=== PATIENT | female | born 1940 | race Caucasian/White ===

== ENCOUNTER 2018-02-08 06:11 | Day surgery (SDC) | payer MEDICARE, OTHER ==
[2018-02-08] MEDS ORDERED: KETOROLAC 0.45% OPHTH DROPS ONE (06:40)
[2018-02-08] MEDS ORDERED: CYCLOPENTOLATE 1% OPHTH DROPS 2 ML ONE (06:41)
[2018-02-08] MEDS ORDERED: PHENYLEPHRINE 2.5% OPHTH 2 ML DROPS ONE (06:41)
[2018-02-08] MEDS ORDERED: LACTATED RINGERS 500 ML IV ONE (06:46)
[2018-02-08] MEDS ORDERED: PROPARACAINE 0.5% OPHTH DROPS 15 ML RIGHTEYE ONE ×2 (06:50→07:48)
[2018-02-08] MEDS ORDERED: PHENYLEPHRINE 2.5% OPHTH 2 ML DROPS RIGHTEYE ONE (06:50)
[2018-02-08] MEDS ORDERED: CYCLOPENTOLATE 1% OPHTH DROPS 2 ML RIGHTEYE ONE (06:50)
[2018-02-08] MEDS ORDERED: KETOROLAC 0.45% OPHTH DROPS RIGHTEYE ONE (06:50)
[2018-02-08] MEDS ORDERED: BRIMONIDINE 0.2% OPHTH DROPS 5 ML ONE (07:16)
[2018-02-08] MEDS ORDERED: TIMOLOL 0.5% OPHTH DROPS ONE (07:16)
[2018-02-08] MEDS ORDERED: TRIAMCIN/MOXIFLOX OPHTHALMIC 0.6 ML VIAL IO ONE (07:16)
[2018-02-08] MEDS ORDERED: BSS/LIDOCAINE/EPINEPHRINE 1 ML SYRINGE ONE (07:17)
[2018-02-08] MEDS ORDERED: VANCOMYCIN OPHTHALMI 8MG/0.8ML 8 MG/0.8 ML SYRINGE IO ONE (07:18)
[2018-02-08] MEDS ORDERED: MIDAZOLAM 2 MG/2 ML VIAL IVP ONE (07:30)
[2018-02-08] MEDS ORDERED: BRIMONIDINE 0.2% OPHTH DROPS 5 ML OPTH ONE (07:44)
[2018-02-08] MEDS ORDERED: EPINEPHrine 1 MG/ML AMP IR ONE (07:45)
[2018-02-08] MEDS ORDERED: TIMOLOL 0.5% OPHTH DROPS OPTH ONE (07:47)
[2018-02-08] MEDS ORDERED: CHONDR SULF/HYALURONATE SYRINGE IO ONE (07:47)
[2018-02-08] MEDS ORDERED: BSS/LIDOCAINE/EPINEPHRINE 1 ML SYRINGE IO ONE (07:47)
[2018-02-08 08:14] VITALS: BP 144/85
--- NOTE | 2018-02-08 15:06 | OPERATIVE REPORT ---
DATE OF SERVICE: 02/08/2018 Physician: Julien Castillo MD PREOPERATIVE DIAGNOSIS: Visually significant cataract, right eye. This was her first cataract surgery and this was a laser assisted cataract surgery. POSTOPERATIVE DIAGNOSIS: Visually significant cataract, right eye. This was her first cataract surgery and this was a laser assisted cataract surgery. NAME OF PROCEDURE: Phacoemulsification posterior chamber intraocular lens implant right eye with laser assist. SURGEON: Julien Castillo MD ANESTHESIA: Monitored anesthesia care. COMPLICATIONS: None. OPERATIVE INDICATIONS: This is a 77-year-old woman with progressive vision loss in the right eye due to 2-3+ nuclear sclerotic cataract. Best corrected visual acuity was 20 /25 with glare to 20/100 in the right eye. INDICATIONS FOR SURGERY: Overall decrease in vision, difficulty seeing words, closed captions or game scores on TV; difficulty driving in low light or at night, difficulty driving at night because of headlights from other vehicles, difficulty with glare or bright lights in any situation, difficulty tracking a golf ball and decreased acuity with firearms. She was consented at length concerning risks and benefits of cataract surgery after which she expressed a desire to proceed with surgery. OPERATIVE PROCEDURE: The patient was taken to the OR 3 and placed under monitored anesthesia care. A surgical timeout was conducted confirming correct patient, correct procedure, and correct surgical site. She was placed on the LenSx laser and her eye docked to the laser interface. The laser performed a capsulotomy, lens softening, phaco wounds and arcuate keratotomy incisions. She was then moved to the operating microscope, given topical anesthesia and then prepped and draped in the usual sterile fashion. The eye was entered at the 12 and 9 o'clock positions. Intracameral Shugarcaine was injected into the anterior chamber, followed by Viscoat. The capsulorrhexis flap created by the LenSx laser was removed from the anterior chamber. The nucleus was hydrodissected and phacoemulsified. The cortex was evacuated using automated infusion and aspiration (I&A). Provisc was injected in the capsular bag, and a 21.0 diopter intraocular lens was inserted in the bag. Approximately 1.0 mL with a mixture of triamcinolonea, moxifloxacin, and vancomycin was injected subconjunctivally in the superior quadrant for infection and inflammation prophylaxis. I&A was used to evacuate the viscoelastic material. The eye was inflated to physiologic pressure using balanced salt solution and found to be watertight. The patient was taken from the operating room in good condition and given postop instructions. TD: 02/08/2018 08:15 EILEEN
== END 2018-02-08 06:12 | disposition home or self-care (01) ==
LOC: SDS 06:11
PROVIDERS: ATTEND Ophthalmology
PROC: 08RJ3JZ Replacement of Right Lens with Synthetic Substitute, Percutaneous Approach (ICD-10-PCS; principal; 2018-02-08 07:30)
DX: H25.11 Age-related nuclear cataract, right eye (principal); I48.91 Unspecified atrial fibrillation; E03.9 Hypothyroidism, unspecified; Z95.0 Presence of cardiac pacemaker; H40.9 Unspecified glaucoma; Z79.82 Long term (current) use of aspirin; Z86.73 Personal history of transient ischemic attack (TIA), and cerebral infarction without residual deficits
CPT/HCPCS: 66984; A9270; V2632

== ENCOUNTER 2018-03-12 18:54 | Emergency (ER) | payer MEDICARE, OTHER ==
--- NOTE | 2018-03-12 19:53 | ED Physician Documentation ---
PD HPI CHEST PAIN - Stated complaint Stated Complaint: CHEST PX - Chief complaint Chief Complaint: Cardiac - History obtained from History obtained from: Patient - History of Present Illness Timing - onset: Today Timing - onset during: Rest Timing - duration: Minutes Timing - details: Abrupt onset, Now resolved (at home she had feeling of heart irregular and seemed fast. She felt anxious with it. Has had atrial fib in the past. She is few months after pacer placement. rhythm review by cardiology noted some episodes of atrial fib so she was started on Eliquis about 2 weeks ago.) Quality: Tightness. No: Pressure Location: Substernal, Left chest Radiation: No: Jaw, Neck Worsened by: No: Inspiration, Movement, Palpation Associated symptoms: Shortness of air, Palpitations. No: Diaphoresis, Nausea, Feeling faint / dizzy, General Weakness Similar symptoms before: Diagnosis (atrial fib in the past) Review of Systems Constitutional: reports: Fatigue. denies: Fever, Myalgias Nose: denies: Rhinorrhea / runny nose, Congestion Throat: denies: Sore throat Respiratory: denies: Dyspnea, Cough, Wheezing GI: denies: Nausea, Vomiting, Diarrhea : denies: Dysuria Musculoskeletal: denies: Extremity swelling Neurologic: reports: Generalized weakness. denies: Focal weakness, Numbness PD PAST MEDICAL HISTORY - Past Medical History Cardiovascular: Atrial fibrillation Respiratory: None Neuro: None Endocrine/Autoimmune: HyPOthyroidism GI: None : Nocturia, Other HEENT: Chronic vision loss, Glaucoma, Other Psych: Claustrophobia Musculoskeletal: Scoliosis, Chronic back pain Derm: None - Past Surgical History Past Surgical History: Yes General: Cholecystectomy, Appendectomy /DIRECTOR OF REAL ESTATE: Hysterectomy Cardiovascular: Pacemaker HEENT: Tonsil/Adenoidectomy - Present Medications Home Medications: Ambulatory Orders Medication Instructions Recorded Confirmed Apixaban [Eliquis] 03/12/18 Latanoprost [Latanoprost] 1 drops EACHEYE QPM 03/12/18 03/12/18 Levothyroxine [Synthroid] 112 mcg PO QDAC 03/12/18 03/12/18 - Allergies Allergies/Adverse Reactions: Allergies Allergy/AdvReac Type Severity Reaction Status Date / Time codeine Allergy Mild Emesis Verified 03/12/18 19:17 ciprofloxacin [From Cipro] Allergy Itching Verified 03/12/18 19:17 - Social History Does the pt smoke?: No Smoking Status: Never smoker Does the pt drink ETOH?: No Does the pt have substance abuse?: No - Immunizations Immunizations are current?: Yes - POLST Patient has POLST: No PD ED PE NORMAL - Vitals Vital signs reviewed: Yes - General General: Alert and oriented X 3, Well developed/nourished, Other (no pain but seems a bit anxious. ) - HEENT HEENT: Pharynx benign - Neck Neck: Supple, no meningeal sign, No adenopathy - Cardiac Cardiac: RRR, No murmur - Respiratory Respiratory: Clear bilaterally - Abdomen Abdomen: Soft, Non tender - Derm Derm: Normal color, Warm and dry - Extremities Extremities: No tenderness to palpate, Normal ROM s pain, No edema, No calf tenderness / cord - Neuro Neuro: Alert and oriented X 3, No motor deficit, Normal speech - Psych Psych: Normal affect (somewhat anxious and scared about having heart problem still. She had hoped the pacer would be resolution of problems. ) Results - Vitals Vitals: Vital Signs - 24 hr 03/12/18 03/12/18 19:04 21:07 Temperature 36.1 C L Heart Rate 60 60 Respiratory 16 19 Rate Blood Pressure 142/75 H 135/73 H O2 Saturation 98 98 Oxygen O2 Source Room air - EKG (time done) 19:03 Rate: Rate (enter#) (62) Rhythm: Paced Melvin: Normal Intervals: Normal VA QRS: Normal Ischemia: Normal ST segments. No: ST elevation c/w ischemia, ST depression - Labs Labs: Laboratory Tests 03/12/18 03/12/18 03/12/18 19:45 19:45 19:45 WBC 6.5 RBC 5.28 Hgb 15.7 Hct 47.3 H MCV 89.5 MCH 29.6 MCHC 33.1 RDW 14.4 Plt Count 224 MPV 7.3 L Neut # (Auto) 4.0 Lymph # (Auto) 1.5 Tama # (Auto) 0.6 Eos # (Auto) 0.2 Baso # (Auto) 0.1 Absolute Nucleated RBC 0.00 Nucleated RBC % 0.1 Sodium 137 Potassium 3.5 Chloride 105 Carbon Dioxide 28 Anion Gap 4.0 L BUN 13 Creatinine 0.6 Estimated GFR (MDRD) 97 Glucose 101 H Calcium 9.0 Magnesium 2.0 Total Bilirubin 0.8 AST 17 ALT 15 Alkaline Phosphatase 66 B-Natriuretic Peptide 78 Total Protein 6.8 Albumin 3.6 Globulin 3.2 Albumin/Globulin Ratio 1.1 Lipase 26 PD MEDICAL DECISION MAKING - ED course Complexity details: considered differential (she had feeling of heart going fast at home. It is okay here. She has recording pacer, so it can be interogated by Cardiology. If having runs of fib, could be Rx meds for rate/ rhythm control. Defer to Cardiology. Labs are okay here with low normal K. ), d/ w patient - Sepsis Event Vital Signs: Vital Signs - 24 hr 03/12/18 03/12/18 19:04 21:07 Temperature 36.1 C L Heart Rate 60 60 Respiratory 16 19 Rate Blood Pressure 142/75 H 135/73 H O2 Saturation 98 98 Oxygen O2 Source Room air Departure - Departure Disposition: 01 Home, Self Care Clinical Impression: Irregular heart rate Fatigue Qualifiers: Fatigue type: unspecified Qualified Code(s): R53.83 - Other fatigue Condition: Stable Record reviewed to determine appropriate education?: Yes Follow-Up: MARIO GRAHAM MD [Primary Care Provider] - Comments: Your heart rhythm was normal with the pacemaker here. You did not have any atrial fibrillation at this time. It might have been going fast earlier when you felt it that way. Call your cardiology office in the next couple of days. They can interrogate your pacemaker and see if you did have a fast episode. Otherwise continue the current medications. Add some potassium dietarily. Drink lots of fluids. Discharge Date/Time: 03/12/18 21:27
[2018-03-12 20:19] LABS: BASOPHILS # (AUTO) 0.1 10^3/uL (0.0-0.1); EOSINOPHILS # (AUTO) 0.2 10^3/uL (0.0-0.7); EOSINOPHILS % (AUTO) 3.6 %; HGB - HEMOGLOBIN 15.7 g/dL (12.0-16.0); LYMPHOCYTES # (AUTO) 1.5 10^3/uL (1.5-3.5); LYMPHOCYTES % (AUTO) 23.5 %; MEAN CORPUSCULAR HEMOGLOBIN 29.6 pg (27.0-31.0); MEAN CORPUSCULAR HGB CONC 33.1 g/dL (32.0-36.0); MEAN CORPUSCULAR VOLUME 89.5 fL (81.0-99.0); MEAN PLATELET VOLUME 7.3 fL (7.9-10.8); MONOCYTES # (AUTO) 0.6 10^3/uL (0.0-1.0); MONOCYTES % (AUTO) 9.7 %; NEUTROPHILS % (AUTO) 62.2 %; PLT - PLATELET COUNT 224 10^3/uL (130-450); RED BLOOD COUNT 5.28 10^6/uL (4.20-5.40); RED CELL DISTRIBUTION WIDTH 14.4 % (12.0-15.0); WHITE BLOOD COUNT 6.5 x10^3/uL (4.8-10.8)
[2018-03-12 20:29] LABS: ALBUMIN 3.6 g/dL (3.2-5.5); ALBUMIN/GLOBULIN RATIO 1.1 (1.0-2.2); BILIRUBIN,TOTAL 0.8 mg/dL (0.2-1.0); CREATININE 0.6 mg/dL (0.4-1.0); TOTAL PROTEIN 6.8 g/dL (6.7-8.2)
[2018-03-12 21:08] VITALS: BP 135/73
== END 2018-03-12 21:27 | disposition home or self-care (01) ==
LOC: ED 18:54
DX: I49.9 Cardiac arrhythmia, unspecified (principal); R53.83 Other fatigue; I48.91 Unspecified atrial fibrillation; Z95.0 Presence of cardiac pacemaker; Z79.01 Long term (current) use of anticoagulants
CPT/HCPCS: 36415; 80053; 83690; 83735; 83880; 85025; 93005; 99283

== ENCOUNTER 2018-03-26 09:30 | Outpatient (CLI) | payer MEDICARE, OTHER ==
--- NOTE | 2018-03-26 11:04 | XRAY Report ---
Procedure Date: 03/26/2018 Accession Number: [id number] / [id number] Procedure: XRS - Hand 3 View LT CPT Code: FULL RESULT: EXAM: Hand 3 View LT DATE: 03/26/2018 9:41 AM CLINICAL HISTORY: INITIAL CALL TO PATIENT [facility] [id number] BNU COMPARISON: None. TECHNIQUE: 3 views. FINDINGS: Bones: Normal. No fractures or bone lesions. Joints: There are mild degenerative changes most pronounced at the third distal interphalangeal joint. Soft Tissues: Normal. No soft tissue swelling. IMPRESSION: Mild degenerative changes as described. RADIA
== END 2018-03-26 09:31 | disposition home or self-care (01) ==
LOC: DI.S 09:30
PROVIDERS: ATTEND Nurse Practitioner Family
DX: M19.042 Primary osteoarthritis, left hand (principal)

== ENCOUNTER 2018-04-19 08:46 | Day surgery (SDC) | payer MEDICARE, OTHER ==
[~2018-04-19 08:46] MED LIST: BRIMONIDINE 0.2% OPHTH DROPS 5 ML ONE; BSS/LIDOCAINE/EPINEPHRINE 1 ML SYRINGE ONE; EPINEPHrine 1 MG/ML AMP ONE; KETOROLAC 0.45% OPHTH DROPS ONE; PHENYLEPHRINE 2.5% OPHTH 2 ML DROPS ONE; PROPARACAINE 0.5% OPHTH DROPS 15 ML ONE; TIMOLOL 0.5% OPHTH DROPS ONE; TRIAMCIN/MOXIFLOX OPHTHALMIC 0.6 ML VIAL IO ONE; VANCOMYCIN OPHTHALMI 8MG/0.8ML 8 MG/0.8 ML SYRINGE IO ONE
[2018-04-19] MEDS ORDERED: CYCLOPENTOLATE 1% OPHTH DROPS 2 ML LEFTEYE ONE (09:06)
[2018-04-19] MEDS ORDERED: PROPARACAINE 0.5% OPHTH DROPS 15 ML LEFTEYE ONE ×2 (09:06→10:14)
[2018-04-19] MEDS ORDERED: KETOROLAC 0.45% OPHTH DROPS LEFTEYE ONE (09:06)
[2018-04-19] MEDS ORDERED: PHENYLEPHRINE 2.5% OPHTH 2 ML DROPS LEFTEYE ONE (09:06)
[2018-04-19] MEDS ORDERED: LACTATED RINGERS 500 ML IV ONE (09:14)
--- NOTE | 2018-04-19 09:59 | ANESTHESIA ---
Pre-Anesthesia VS, & Labs - Diagnosis Left nuclear sclerotic cataract - Procedure Left phaco withIOL implant Height 5 ft 3 in Weight (kg) 76.5 kg Body Mass Index 28.6 - NPO >8 hours - Is Patient ?: Not Applicable Home Medications and Allergies Home Medications: Ambulatory Orders Medication Instructions Recorded Confirmed Apixaban [Eliquis] 03/12/18 Latanoprost [Latanoprost] 1 drops EACHEYE QPM 03/12/18 04/19/18 Levothyroxine [Synthroid] 112 mcg PO QDAC 03/12/18 04/19/18 Allergies/Adverse Reactions: Allergies Allergy/AdvReac Type Severity Reaction Status Date / Time codeine Allergy Mild Emesis Verified 03/12/18 19:17 ciprofloxacin [From Cipro] Allergy Itching Verified 03/12/18 19:17 Anes History & Medical History - Anesthetic History Anesthesia Complications: reports: Post-Operative Nausea/Vomiting Family history of Anesthesia Complications: Denies Family history of Malignant Hyperthermia: Denies - Medical History Cardiovascular: reports: Atrial fibrillation, Other (pacemaker) Pulmonary: reports: None Gastrointestinal: reports: None Urinary: reports: Nocturia, Other Neuro: reports: None Musculoskeletal: reports: Scoliosis, Chronic back pain Endocrine/Autoimmune: reports: HyPOthyroidism Skin: reports: None Smoking Status: Never smoker - Surgical History General: Cholecystectomy, Appendectomy Eyes Ears Nose Throat (EENT): Tonsil/Adenoidectomy Cardiothoracic: Pacemaker Gynecologic: Hysterectomy Exam General: Alert, Oriented x3, Cooperative, No acute distress Mouth Openin Fingerbreadth Neck Mobility: Normal Mallampati classification: II Thyromental Distance: greater than 6 cm Respiratory: Lungs clear, Normal breath sounds, No respiratory distress, No accessory muscle use Cardiovascular: Regular rate, Normal S1, Normal S2, No murmurs Mental/Cognitive Status: Alert/Oriented X3, Normal for patient Cognitive Status: Within normal limits Plan Anesthesia Type: MAC Consent for Procedure(s) Verified and Reviewed: Yes Code Status: Attempt Resuscitation ASA classification: 2-Mild systemic disease Is this case an emergency?: No
[2018-04-19] MEDS ORDERED: VANCOMYCIN OPHTHALMI 8MG/0.8ML 8 MG/0.8 ML SYRINGE IO ONE (10:11)
[2018-04-19] MEDS ORDERED: MIDAZOLAM 2 MG/2 ML VIAL IVP ONE (10:11)
[2018-04-19] MEDS ORDERED: CHONDR SULF/HYALURONATE SYRINGE IO ONE (10:12)
[2018-04-19] MEDS ORDERED: BRIMONIDINE 0.2% OPHTH DROPS 5 ML OPTH ONE (10:12)
[2018-04-19] MEDS ORDERED: TIMOLOL 0.5% OPHTH DROPS OPTH ONE (10:12)
[2018-04-19] MEDS ORDERED: EPINEPHrine 1 MG/ML AMP IR ONE (10:12)
[2018-04-19] MEDS ORDERED: TRIAMCIN/MOXIFLOX/VANCO 1 ML VIAL IO ONE (10:13)
[2018-04-19] MEDS ORDERED: BSS/LIDOCAINE/EPINEPHRINE 1 ML SYRINGE IO ONE ×2 (10:13)
[2018-04-19 10:53] VITALS: BP 128/68
--- NOTE | 2018-04-19 11:47 | OPERATIVE REPORT ---
DATE OF SERVICE: 04/19/2018 Physician: Julien Castillo MD PREOPERATIVE DIAGNOSIS: Visually significant cataract, left eye. Cataract surgery was performed on the right eye on 02/08/2018. POSTOPERATIVE DIAGNOSIS: Visually significant cataract, left eye. Cataract surgery was performed on the right eye on 02/08/2018. PROCEDURE: Phacoemulsification with posterior chamber intraocular lens implant, left eye. SURGEON: Julien Castillo MD ANESTHESIA: Monitored anesthesia care. COMPLICATIONS: None. OPERATIVE INDICATIONS: This is a 78-year-old woman with progressive vision loss in the left eye due to 2-3+ nuclear sclerotic cataract. Best corrected visual acuity was 20/25, with glare to 20/60 in t he left eye. Indications for surgery are overall decrease in vision, difficulty seeing words, closed captions or game scores on TV; difficulty driving in low light or at night, difficulty driving at [facility] because of headlights from other vehicles, difficulty with glare or bright lights in any situatio n, difficulty tracking a golf ball, and decreased acuity with firearms. She was consented at length concerning risks and benefits of cataract surgery, after which she expressed a desire to proceed with surgery. OPERATIVE PROCEDURE: The patient was taken to OR #3 and placed under monitored anesthesia care. A s urgical timeout was conducted confirming correct patient, correct procedure, and correct surgical sit e. She was given topical anesthesia, and prepped and draped in the usual sterile fashion. The eye w as entered at the 6 and 9 o'clock positions. Intracameral Shugarcaine was injected into the anterior chamber, followed by Viscoat. A continuous-tear curvilinear capsulorrhexis was performed. The nucl eus was hydrodissected and phacoemulsified. The cortex was evacuated using automated infusion and as piration. Provisc was injected in the capsular bag, and a 21.5 diopter intraocular lens was inserted in the bag. Approximately 0.8 mL of a mixture of triamcinolone, moxifloxacin and vancomycin was inj ected subconjunctivally in the superior quadrant for infection and inflammation prophylaxis. I and A was used to evacuate the viscoelastic materials. The eye was inflated to physiologic pressure using balanced salt solution, and found to be watertight. The patient was taken from the operating room i n good condition and given postop instructions. TD: 04/19/2018 10:37
== END 2018-04-19 08:47 | disposition home or self-care (01) ==
LOC: SDS 08:46
PROVIDERS: ATTEND Ophthalmology
PROC: 08RK3JZ Replacement of Left Lens with Synthetic Substitute, Percutaneous Approach (ICD-10-PCS; principal; 2018-04-19 10:00)
DX: H25.12 Age-related nuclear cataract, left eye (principal); H40.1290 Low-tension glaucoma, unspecified eye, stage unspecified; I48.91 Unspecified atrial fibrillation; E03.9 Hypothyroidism, unspecified; Z79.01 Long term (current) use of anticoagulants; Z79.82 Long term (current) use of aspirin; Z95.0 Presence of cardiac pacemaker; Z98.41 Cataract extraction status, right eye
CPT/HCPCS: 66984; A9270; J3490; V2632

== ENCOUNTER 2018-12-12 20:55 | Outpatient (CLI) | payer MEDICARE, OTHER | END 2018-12-12 20:56 | disposition EMS.NT | LOC: EMS 20:55 | PROVIDERS: ATTEND Surgery | DX: R58 Hemorrhage, not elsewhere classified (principal) ==

== ENCOUNTER 2018-12-12 22:06 | Emergency (ER) | payer MEDICARE, OTHER ==
[2018-12-12 22:17] VITALS: BP 156/74
[2018-12-12] MEDS ORDERED: LIDOCAINE 1%-EPI 1:100000 30 ML MDV SUBQ STA (22:31)
--- NOTE | 2018-12-12 22:48 | ED Physician Documentation ---
PD HPI LOWER EXT INJURY - Stated complaint Stated Complaint: LT LEG WOUND CHECK - Chief complaint Chief Complaint: Wound - History obtained from History obtained from: Patient - History of Present Illness PD HPI LOW EXT INJURY LOCATION: Left (She had a irritated area on the left lateral calf. She thought she might of gotten a thorn in it. Tonight it started bleeding heavily. She is on Eliquis. 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 Cardiovascular: Pacemaker HEENT: Tonsil/Adenoidectomy - Present Medications Home Medications: Ambulatory Orders Medication Instructions Recorded Confirmed Apixaban [Eliquis] 03/12/18 Latanoprost 1 drops EACHEYE QPM 03/12/18 04/19/18 Levothyroxine [Synthroid] 112 mcg PO QDAC 03/12/18 04/19/18 - Allergies Allergies/Adverse Reactions: Allergies Allergy/AdvReac Type Severity Reaction Status Date / Time codeine Allergy Mild Emesis Verified 03/12/18 19:17 ciprofloxacin [From Cipro] Allergy Itching Verified 03/12/18 19:17 - Social History Does the pt smoke?: No Smoking Status: Never smoker Does the pt drink ETOH?: No Does the pt have substance abuse?: No - Immunizations Immunizations are current?: Yes - POLST Patient has POLST: No PD ED PE NORMAL - Vitals Vital signs reviewed: Yes - General General: Alert and oriented X 3, No acute distress - Extremities Extremities: Other (The left lower lateral calf there is a small lesion about 2 mm in diameter That appears consistent with a varicose vein. She is pretty convinced there may be a foreign body in it I did not see that on examination.) - Neuro Neuro: Alert and oriented X 3, Normal speech Results - Vitals Vitals: Vital Signs - 24 hr 12/12/18 22:13 Temperature 36.5 C Heart Rate 65 Respiratory 18 Rate Blood Pressure 156/74 H O2 Saturation 97 Oxygen O2 Source Room air Procedures - General procedure General procedure: Left lower extremity incision and drainage of varicose vein with suturing and exploration for foreign body: After discussion of risks and benefits and alternatives and verbal consent the skin of the left leg was prepped with ChloraPrep and sterilely draped. The area near the lesion was locally infiltrated with lidocaine with epinephrine and then a small incision was made with a 15 blade and using hemostats it was explored. It did start to bleed profusely, but there was no foreign body identified. It was closed with a single 4-0 nylon stitch and there was no further bleeding. Departure - Departure Disposition: 01 Home, Self Care Clinical Impression: Bleeding from varicose vein Condition: Good Record reviewed to determine appropriate education?: Yes Instructions: ED Veins Varicose Comments: Keep it clean and covered with a bandage. Okay to wash it with soap and water. Suture removal in about 10 days. Your blood pressure was elevated today on check into the emergency department. This does not mean that you have hypertension, it is a common phenomenon to come to the emergency department and have elevated blood pressure. I recommend that you see your primary care physician within the week to have it rechecked when you are feeling better.
== END 2018-12-12 22:45 | disposition home or self-care (01) ==
LOC: ED 22:06
DX: I83.892 Varicose veins of left lower extremity with other complications (principal); L98.8 Other specified disorders of the skin and subcutaneous tissue; R03.0 Elevated blood-pressure reading, without diagnosis of hypertension; I48.91 Unspecified atrial fibrillation; Z79.01 Long term (current) use of anticoagulants; E03.9 Hypothyroidism, unspecified; Z95.0 Presence of cardiac pacemaker
CPT/HCPCS: 10120; 99282; 99283

== ENCOUNTER 2018-12-17 09:33 | Outpatient (CLI) | payer MEDICARE, OTHER ==
[2018-12-17 18:17] LABS: CREATININE 0.8 mg/dL (0.4-1.0)
== END 2018-12-17 09:34 | disposition home or self-care (01) ==
LOC: LAB.F 09:33
PROVIDERS: ATTEND Internal Medicine
DX: I48.0 Paroxysmal atrial fibrillation (principal)
CPT/HCPCS: 36415; 82565

== ENCOUNTER 2020-03-04 13:54 | Outpatient (CLI) | payer MEDICARE, OTHER | END 2020-03-04 13:55 | disposition home or self-care (01) | LOC: LAB.S 13:54 | PROVIDERS: ATTEND Registered Nurse | DX: Z01.812 Encounter for preprocedural laboratory examination (principal); K22.5 Diverticulum of esophagus, acquired; Z20.828 Contact with and (suspected) exposure to other viral communicable diseases | CPT/HCPCS: 81599 ==

== ENCOUNTER 2021-01-18 08:00 | Outpatient (CLI) | payer MEDICARE, OTHER | END 2021-01-18 23:59 | disposition home or self-care (01) | LOC: LAB.S 08:00 | PROVIDERS: ATTEND Physician Assistant Medical | DX: R30.0 Dysuria (principal); Z87.440 Personal history of urinary (tract) infections | CPT/HCPCS: 87086; 87181 ==

== ENCOUNTER 2021-03-27 08:00 | Outpatient (CLI) | payer MEDICARE, OTHER | END 2021-03-27 23:59 | disposition home or self-care (01) | LOC: LAB.S 08:00 | PROVIDERS: ATTEND Physician Assistant | DX: N30.00 Acute cystitis without hematuria (principal); R30.0 Dysuria | CPT/HCPCS: 87086 ==

== ENCOUNTER 2021-12-16 15:09 | Outpatient (CLI) | payer MEDICARE, OTHER ==
--- NOTE | 2021-12-16 16:28 | Ultrasound Report ---
PROCEDURE: Duplex Ext Veins Right INDICATIONS: EDEMA RIGHT LEG TECHNIQUE: Real-time imaging, as well as color and pulse Doppler interrogation, were performed of the lower extr emity deep veins from the inguinal ligament to the popliteal fossa. COMPARISON: None. FINDINGS: The deep veins are normally compressible, and free of intraluminal thrombus. Color and pu lse Doppler demonstrate normal phasic intraluminal flow. There is normal augmentation response to di stal compression maneuver. IMPRESSION: No sonographic evidence of DVT. Probable ruptured Hill's cyst in right popliteal fossa. Reviewed by: Alvarez Florentino MD on 12/16/2021 4:26 PM PDT Approved by: Alvarez Florentino MD on 12/16/2021 4:26 PM PDT Station ID: [id number]
== END 2021-12-16 15:10 | disposition home or self-care (01) ==
LOC: DI 15:09
PROVIDERS: ATTEND Physician Assistant Medical
DX: Z86.711 Personal history of pulmonary embolism (principal); Z86.718 Personal history of other venous thrombosis and embolism; R60.0 Localized edema; M79.604 Pain in right leg

== ENCOUNTER 2022-07-26 11:56 | Outpatient (CLI) | payer MEDICARE, OTHER ==
--- NOTE | 2022-07-26 13:21 | XRAY Report ---
PROCEDURE: Wrist 3 View RT INDICATIONS: PAIN IN RIGHT WRIST TECHNIQUE: 3 views of the wrist were acquired. COMPARISON: None FINDINGS: Bones: No fractures or dislocations. No suspicious bony lesions. Soft tissues: No suspicious soft tissue calcifications. IMPRESSION: No fracture. No acute osseous lesion. If symptoms and/or clinical concern for pathology persists, fur ther assessment with repeat plain film radiographs (7-10 days) or advanced imaging (CT, MR, bone scan ) should be considered. Reviewed by: Sia Carroll MD, PhD on 07/26/2022 1:20 PM PST Approved by: Sia Carroll MD, PhD on 07/26/2022 1:20 PM [facility] Station ID: [id number]
== END 2022-07-26 11:57 | disposition home or self-care (01) ==
LOC: DI.S 11:56
PROVIDERS: ATTEND Physician Assistant
DX: M25.531 Pain in right wrist (principal)

== ENCOUNTER 2023-02-06 08:00 | Outpatient (CLI) | payer MEDICARE, OTHER | END 2023-02-06 23:59 | disposition home or self-care (01) | LOC: LAB.S 08:00 | PROVIDERS: ATTEND Registered Nurse | DX: R82.79 Other abnormal findings on microbiological examination of urine (principal); R30.0 Dysuria | CPT/HCPCS: 87077; 87086; 87181 ==

== ENCOUNTER 2023-02-07 08:00 | Outpatient (CLI) | payer MEDICARE, OTHER ==
[2023-02-07 20:20] LABS: BACTERIAL VAGINOSIS DNA NEGATIVE (NEGATIVE); CANDIDA GLABRATA DNA NEGATIVE (NEGATIVE); CANDIDA GROUP DNA NEGATIVE (NEGATIVE); CANDIDA KRUSEI DNA NEGATIVE (NEGATIVE); TRICHOMONAS VAGINALIS DNA NEGATIVE (NEGATIVE)
== END 2023-02-07 23:59 | disposition home or self-care (01) ==
LOC: LAB.S 08:00
PROVIDERS: ATTEND Registered Nurse
DX: R30.0 Dysuria (principal)
CPT/HCPCS: 81514

== ENCOUNTER 2023-02-27 08:00 | Outpatient (CLI) | payer MEDICARE, OTHER | END 2023-02-27 23:59 | disposition home or self-care (01) | LOC: LAB.R 08:00 | PROVIDERS: ATTEND Physician Assistant | DX: R82.79 Other abnormal findings on microbiological examination of urine (principal); R30.0 Dysuria | CPT/HCPCS: 87086 ==

== ENCOUNTER 2023-04-13 16:49 | Emergency (ER) | payer MEDICARE, OTHER ==
[2023-04-13] MEDS ORDERED: TETANUS/DIPHTHERIA/PERTUSSIS 0.5 ML SYRINGE IM ONE (17:09)
--- NOTE | 2023-04-13 17:12 | ED Physician Documentation ---
History of Present Illness - Stated complaint Stated Complaint: FALL/HIT HEAD/NOSE INJ - Chief complaint Chief Complaint: Trauma Hd/Nk - Additonal information Additional information: 83-year-old female presents emergency department for evaluation of facial trauma and skin tears after ground-level fall. 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 She did not lose consciousness. She was able to get up on her own after a minute or 2. She reports she had bilateral epistaxis as well as skin tears and bruising on both knees and shins. Patient has a history of atrial fibrillation was previously on Eliquis but got the Watchman device several years ago and is no longer anticoagulated. Patient denies syncope. No chest pain or shortness of air. No focal neurodeficits on initial examination. Review of Systems Constitutional: reports: Other (facial trauma). denies: Fever, Chills Throat: reports: Reviewed and negative Cardiac: reports: Reviewed and negative Respiratory: reports: Reviewed and negative Skin: reports: Laceration (s) Musculoskeletal: denies: Neck pain, Back pain, Extremity pain PD PAST MEDICAL HISTORY - Past Medical History Cardiovascular: Atrial fibrillation, Other Respiratory: None Neuro: None Endocrine/Autoimmune: HyPOthyroidism GI: None : Nocturia, Other HEENT: Chronic vision loss, Glaucoma, Other Psych: Claustrophobia Musculoskeletal: Scoliosis, Chronic back pain Derm: None - Past Surgical History Past Surgical History: Yes General: Cholecystectomy, Appendectomy /CUSTOMER ENGAGEMENT MANAGER: Hysterectomy Cardiovascular: Pacemaker HEENT: Tonsil/Adenoidectomy - Present Medications Home Medications: Ambulatory Orders Medication Instructions Recorded Confirmed Latanoprost 1 drops EACHEYE QPM 03/12/18 04/13/23 Levothyroxine [Synthroid] 112 mcg PO QDAC 03/12/18 04/19/18 HYDROcod/ACETAM 5/325 [[place] 5/325] 1 tablet PO BID PRN #10 tablet 04/13/23 - Allergies Allergies/Adverse Reactions: Allergies Allergy/AdvReac Type Severity Reaction Status Date / Time codeine Allergy Mild Emesis Verified 04/13/23 16:54 ciprofloxacin [From Cipro] Allergy Itching Verified 04/13/23 16:54 nitrofurantoin Allergy Cramps Verified 04/13/23 16:54 [From Macrobid] - Social History Does the pt smoke?: No Smoking Status: Never smoker Does the pt drink ETOH?: No Does the pt have substance abuse?: No - Immunizations Immunizations are current?: Yes - POLST Patient has POLST: No PD ED PE NORMAL - General General: Alert and oriented X 3, No acute distress, Well developed/nourished - HEENT HEENT: Other (bruising under bilateral eye orbits R>L. superficial nasal abrasio n. dried blood both nares without findings of septal hematoma) - Neck Neck: Supple, no meningeal sign, No bony TTP - Cardiac Cardiac: RRR, No murmur - Respiratory Respiratory: No respiratory distress, Clear bilaterally - Back Back: No CVA TTP, No spinal TTP (No tenderness elicited with palpation of the cervical thoracic or lumbar spine no crepitus step-off or deformity.) - Derm Derm: Normal color, Warm and dry, Other (Superficial bilateral knee abrasions as well as superficial skin tears lower shins.) - Extremities Extremities: No deformity, Other (No pain elicited within the pelvis or hip. 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, No motor deficit, Normal speech Eye Opening: Spontaneous Motor: Obeys Commands Verbal: Oriented GCS Score: 15 Results - Vitals Vitals: Vital Signs - 24 hr 04/13/23 16:55 Temperature 36.5 C Heart Rate 60 Respiratory 16 Rate Blood Pressure 142/70 H O2 Saturation 98 Oxygen O2 Source Room air - Rads (name of study) cxr Relevant Findings:: Final report received (no acute cardiopulmonary process) CT head Relevant Findings:: Final report received (No acute intracranial pathology.) max fac CT Relevant Findings:: Final report received (Displaced nasal bone fractures) cervical CT Relevant Findings:: Final report received (No acute displaced fracture or traumatic subluxation. Smooth interstitial thickening of the lung apices, likely mild pulmonary edema) PD Medical Decision Making - ED course Complexity details: reviewed results, re-evaluated patient, considered differential, d/w patient ED course: 83-year-old female presents emergency department for evaluation of facial trauma after a mechanical ground-level fall when she tripped stepping over the threshold into her studio. She is not anticoagulated and did not lose consciousness. She was able to get up on her own. On presentation to the emergency department she is alert and well-appearing though she has evidence of facial trauma with bruising beneath both her eyes and along the nose. She also has some superficial skin tears on her lower shins. Vital signs today in the emergency department were without worrisome abnormalities. Neurologically she was intact without deficits. Given the age and history subsequent CT imaging of the head, cervical spine maxillofacial bones was completed the only traumatic injury finding was that of a displaced nasal bone fracture. Chest x-ray showed no evidence of chest trauma pneumothorax or obvious rib fracture. Superficial skin tears in the lower extremities were glued with Dermabond and tetanus was updated today in the emergency department. I discussed with patient usual management of a nasal fracture. Advised follow- up with PCP for referral as appropriate to ENT or OMFS. The usual emergent return precautions for worsening symptoms was discussed. I am prescribing a short course of short-acting opioid pain medication for this patient. 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 I have discussed that the opioids are for short term therapy only, and will not be refilled from the ED. Departure - Departure Disposition: 01 Home, Self Care Clinical Impression: Ground-level fall, Skin tear Nasal bones, closed fracture Qualifiers: Encounter type: initial encounter Qualified Code(s): S02.2XXA - Fracture of nasal bones, initial encounter for closed fracture Facial contusion Qualifiers: Encounter type: initial encounter Qualified Code(s): S00.83XA - Contusion of other part of head, initial encounter Condition: Stable Record reviewed to determine appropriate education?: Yes Instructions: ED Fx Nasal Conf W X Ray Follow-Up: SHAHID FRASER PA [Primary Care Provider] - Prescriptions: HYDROcod/ACETAM 5/325 [[place] 5/325] 1 tablet PO BID PRN #10 tablet PRN Reason: Pain Comments: As discussed at the bedside the CT imaging of your brain and cervical spine did not show any acute traumatic injuries. The CT of your facial bones does confirm a displaced nasal bone fracture. In general you can continue to do your nasal mist sprays. Please discuss this ED visit with your primary care doctor. You may benefit from referral to either an ear nose throat doctor or an oral maxillofacial surgeon. In general your contusions and bruises should heal well over the next week or so. You can apply bacitracin or triple antibiotic ointment to them. The skin tears that were glued on your lower legs do not need the application of antibiotic ointment. I would expect over the next several days you are feeling generally for very sore. You can continue to alternate ibuprofen or Tylenol [id number] at home. For more severe pain I have sent a prescription for limited amount of hydrocodone to the [facility] in [place]. Return to the ER if you develop any sudden severe headache, have facial droop slurred speech any concerns of infection or your symptoms or not improving as you would anticipate. I am prescribing a short course of narcotic pain medication for you. These are potentially dangerous and addictive medications that should be used carefully. These medications may constipate you. Take an zljb-xrh-bcdcoqt stool softener (docusate) twice daily with plenty of water while taking these medications. If you go 24 hours without a bowel movement, take [id number] miralax, per package instructions. Do not drink or drive while taking these medications. If you received narcotic or sedating medications while in the emergency department, do not drive for 24 hours. Store this medication in a safe, secure place and out of reach of children. It is a violation of federal law to give or sell this medication to another person or to use in a manner other than prescribed. The ED will not refill narcotic prescriptions, including prescriptions lost or stolen. To dispose of unwanted medications: 1. [facility] [address] in [place] has a medication drop box. They accept prescription medications (in pill form) Monday through Monday 9:00 a.m. to 5:00 p.m. 2. The [facility] [employer] accepts prescription medications (in pill form only) for disposal year round. Call for more information. 3. Contact the [facility] for the next [facility] sponsored prescription drug collection event. , [phone], or [phone]; Note that many narcotic pain relievers also contain Tylenol/acetaminophen. Please ensure that your total dose of acetaminophen from all sources does not exceed 3 g (3000 mg) per day. Forms: PCP List
--- OUTSIDE RECORDS SUMMARY | 2023-04-13 17:31 | EXTERNAL MEDICAL SUMMARY RPT | Continuity of Care Document ---
Author Name Unknown Address [address] [place] [address] Phone Organization [place] Address [address] [place] [address] Phone Care Team Providers Care Recoater Name Role Phone Unavailable Unavailable Unavailable French Supplemental Manager,Commodity Manager, Julien Unavailable Unavailabl e Maxwell Supplemental Manager Enp, Nida Unavailable Unavail able Nely Beckett, Henrique Unavailable Unavailable Luc Beckett, Lorena Unavailable Unavailable Girish Husain, Enma Unavailable Unavailable [place] Patient Registrar, Marvin Unavailable U navailable Fortino Patient Registrar, Marvin Unavailable U navailable Chadd Torres, Jennie Ovalles Unavailable Unavailabl e Herbert Patient Registrar Ii, Angelique Unavailab le Unavailable Medications date description facility 2023-01-21 00:00 conjugated estrogens Walk-In Cl [facility] [place] 2023-01-21 00:00 conjugated estrogens Walk-In Cl [facility] [place] 2023-01-24 00:00 conjugated estrogens Walk-In Cl [facility] [place] 2023-02-06 00:00 conjugated estrogens Walk-In Cl [facility] [place] 2023-02-07 00:00 conjugated estrogens Walk-In Cl [facility] [place] 2023-02-07 00:00 conjugated estrogens Walk-In Cl [facility] [place] 2023-02-08 00:00 conjugated estrogens Walk-In Cl [facility] [place] 2023-02-08 00:00 conjugated estrogens Walk-In Cl [facility] [place] 2023-02-09 00:00 conjugated estrogens Walk-In Cl [facility] [place] 2023-02-10 00:00 conjugated estrogens Walk-In Cl [facility] [place] 2023-02-10 00:00 conjugated estrogens [facility] [place] 2023-02-27 00:00 conjugated estrogens [facility] [place] 2023-02-27 00:00 conjugated estrogens [facility] [place] 2023-03-01 00:00 conjugated estrogens Walk[facility] [place] 2023-02-06 00:00 fluconazole [facility] [place] 2023-02-06 00:00 fluconazole [facility] [place] 2023-02-06 00:00 fluconazole [facility] [place] 2023-02-06 00:00 fluconazole [facility] [place] 2023-02-06 00:00 fluconazole [facility] [place] 2023-02-06 00:00 fluconazole [facility] [place] 2023-02-09 00:00 cephalexin [facility] [place] 2023-02-09 00:00 cephalexin [facility] [place] 2023-02-09 00:00 cephalexin [facility] [place] 2023-02-09 00:00 cephalexin [facility] [place] 2023-01-21 00:00 levothyroxine [facility] [place] 2023-01-21 00:00 levothyroxine [facility] [place] 2023-01-24 00:00 levothyroxine [facility] [place] 2023-02-06 00:00 levothyroxine [facility] [place] 2023-02-07 00:00 levothyroxine [facility] [place] 2023-02-07 00:00 levothyroxine [facility] [place] 2023-02-08 00:00 levothyroxine [facility] [place] 2023-02-08 00:00 levothyroxine [facility] [place] 2023-02-09 00:00 levothyroxine [facility] [place] 2023-02-10 00:00 levothyroxine [facility] [place] 2023-02-10 00:00 levothyroxine [facility] [place] 2023-02-27 00:00 levothyroxine [facility] [place] 2023-02-27 00:00 levothyroxine [facility] [place] 2023-03-01 00:00 levothyroxine [facility] [place] 2023-02-09 00:00 nitrofurantoin monohyd/m-cryst [facility] [place] 2023-02-09 00:00 nitrofurantoin monohyd/m-cryst [facility] [place] 2023-02-09 00:00 nitrofurantoin monohyd/m-cryst [facility] [place] 2023-02-09 00:00 nitrofurantoin monohyd/m-cryst [facility] [place] 2023-02-09 00:00 cephalexin [facility] [place] 2023-02-09 00:00 cephalexin [facility] [place] 2023-02-09 00:00 cephalexin [facility] [place] 2023-02-09 00:00 cephalexin [facility] [place] 2023-02-27 00:00 cefdinir [facility] [place] 2023-02-06 00:00 fluconazole [facility] [place] 2023-02-06 00:00 fluconazole [facility] [place] 2023-02-06 00:00 fluconazole [facility] [place] 2023-02-06 00:00 fluconazole [facility] [place] 2023-02-06 00:00 fluconazole [facility] [place] 2023-02-06 00:00 fluconazole [facility] [place] 2023-01-21 00:00 levothyroxine [facility] [place] 2023-01-21 00:00 levothyroxine [facility] [place] 2023-01-24 00:00 levothyroxine [facility] [place] 2023-02-06 00:00 levothyroxine [facility] [place] 2023-02-07 00:00 levothyroxine [facility] [place] 2023-02-07 00:00 levothyroxine [facility] [place] 2023-02-08 00:00 levothyroxine [facility] [place] 2023-02-08 00:00 levothyroxine [facility] [place] 2023-02-09 00:00 levothyroxine [facility] [place] 2023-02-10 00:00 levothyroxine [facility] [place] 2023-02-10 00:00 levothyroxine [facility] [place] 2023-02-27 00:00 levothyroxine [facility] [place] 2023-02-27 00:00 levothyroxine [facility] [place] 2023-03-01 00:00 levothyroxine [facility] [place] 2023-01-21 00:00 trimethoprim [facility] [place] 2023-01-21 00:00 trimethoprim [facility] [place] 2023-01-24 00:00 trimethoprim [facility] [place] 2023-02-06 00:00 trimethoprim [facility] [place] 2023-02-07 00:00 trimethoprim [facility] [place] 2023-02-07 00:00 trimethoprim [facility] [place] 2023-02-08 00:00 trimethoprim [facility] [place] 2023-02-08 00:00 trimethoprim [facility] [place] 2023-02-09 00:00 trimethoprim [facility] [place] 2023-02-10 00:00 trimethoprim [facility] [place] 2023-02-10 00:00 trimethoprim [facility] [place] 2023-02-27 00:00 trimethoprim [facility] [place] 2023-02-27 00:00 trimethoprim [facility] [place] 2023-03-01 00:00 trimethoprim [facility] [place] 2023-02-09 00:00 nitrofurantoin monohyd/m-cryst [facility] [place] 2023-02-09 00:00 nitrofurantoin monohyd/m-cryst [facility] [place] 2023-02-09 00:00 nitrofurantoin monohyd/m-cryst [facility] [place] 2023-02-09 00:00 nitrofurantoin monohyd/m-cryst [facility] [place] 2023-01-21 00:00 CEFTRIAXONE SODIUM Walk-In Clin [facility] [place] 2023-01-21 00:00 CEFTRIAXONE SODIUM Walk[facility]In [facility] [place] 2023-01-21 00:00 CEFTRIAXONE SODIUM Walk[facility]In [facility] [place] 2023-01-21 00:00 CEFTRIAXONE SODIUM Walk[facility] [place] 2023-01-21 00:00 CEFTRIAXONE SODIUM Walk[facility]In [facility] [place] 2023-01-21 00:00 CEFTRIAXONE SODIUM Walk[facility] [place] 2023-01-21 00:00 CEFTRIAXONE SODIUM Walk[facility]In [facility] [place] 2023-01-21 00:00 CEFTRIAXONE SODIUM Walk[facility] [place] 2023-02-09 00:00 nitrofurantoin monohyd/m-cryst [facility] [place] 2023-02-09 00:00 nitrofurantoin monohyd/m-cryst [facility] [place] 2023-02-09 00:00 nitrofurantoin monohyd/m-cryst [facility] [place] 2023-02-09 00:00 nitrofurantoin monohyd/m-cryst Walk-In [facility] [place] 2023-01-21 00:00 conjugated estrogens Walk-In Cl [facility] [place] 2023-01-21 00:00 conjugated estrogens Walk[facility]In [facility] [place] 2023-01-24 00:00 conjugated estrogens Walk[facility]In [facility] [place] 2023-02-06 00:00 conjugated estrogens Walk[facility] [place] 2023-02-07 00:00 conjugated estrogens Walk[facility]In [facility] [place] 2023-02-07 00:00 conjugated estrogens [facility] [place] 2023-02-08 00:00 conjugated estrogens [facility] [place] 2023-02-08 00:00 conjugated estrogens [facility] [place] 2023-02-09 00:00 conjugated estrogens [facility] [place] 2023-02-10 00:00 conjugated estrogens [facility] [place] 2023-02-10 00:00 conjugated estrogens [facility] [place] 2023-02-27 00:00 conjugated estrogens [facility] [place] 2023-02-27 00:00 conjugated estrogens Walk[facility]In [facility] [place] 2023-03-01 00:00 conjugated estrogens Walk[facility]In [facility] [place] 2023-01-21 00:00 dorzolamide-timolol Walk-In Cli [facility] [place] 2023-01-21 00:00 dorzolamide-timolol Walk-In Cli [facility] [place] 2023-01-24 00:00 dorzolamide-timolol Walk-In Cli [facility] [place] 2023-02-06 00:00 dorzolamide-timolol Walk-In Cli [facility] [place] 2023-02-07 00:00 dorzolamide-timolol [facility] [place] 2023-02-07 00:00 dorzolamide-timolol [facility] [place] 2023-02-08 00:00 dorzolamide-timolol [facility] [place] 2023-02-08 00:00 dorzolamide-timolol [facility] [place] 2023-02-09 00:00 dorzolamide-timolol [facility] [place] 2023-02-10 00:00 dorzolamide-timolol [facility] [place] 2023-02-10 00:00 dorzolamide-timolol [facility] [place] 2023-02-27 00:00 dorzolamide-timolol [facility] [place] 2023-02-27 00:00 dorzolamide-timolol [facility] [place] 2023-03-01 00:00 dorzolamide-timolol [facility] [place] 2023-01-21 00:00 trimethoprim [facility] [place] 2023-01-21 00:00 trimethoprim [facility] [place] 2023-01-24 00:00 trimethoprim [facility] [place] 2023-02-06 00:00 trimethoprim [facility] [place] 2023-02-07 00:00 trimethoprim [facility] [place] 2023-02-07 00:00 trimethoprim [facility] [place] 2023-02-08 00:00 trimethoprim [facility] [place] 2023-02-08 00:00 trimethoprim [facility] [place] 2023-02-09 00:00 trimethoprim [facility] [place] 2023-02-10 00:00 trimethoprim [facility] [place] 2023-02-10 00:00 trimethoprim [facility] [place] 2023-02-27 00:00 trimethoprim [facility] [place] 2023-02-27 00:00 trimethoprim [facility] [place] 2023-03-01 00:00 trimethoprim [facility] [place] 2023-02-27 00:00 cefdinir [facility] [place] 2023-02-06 00:00 fluconazole [facility] [place] 2023-02-06 00:00 fluconazole [facility] [place] 2023-02-06 00:00 fluconazole [facility] [place] 2023-02-06 00:00 fluconazole [facility] [place] 2023-02-06 00:00 fluconazole [facility] [place] 2023-02-06 00:00 fluconazole [facility] [place] 2023-01-21 00:00 trimethoprim [facility] [place] 2023-01-21 00:00 trimethoprim [facility] [place] 2023-01-24 00:00 trimethoprim [facility] [place] 2023-02-06 00:00 trimethoprim [facility] [place] 2023-02-07 00:00 trimethoprim [facility] [place] 2023-02-07 00:00 trimethoprim [facility] [place] 2023-02-08 00:00 trimethoprim [facility] [place] 2023-02-08 00:00 trimethoprim [facility] [place] 2023-02-09 00:00 trimethoprim [facility] [place] 2023-02-10 00:00 trimethoprim [facility] [place] 2023-02-10 00:00 trimethoprim [facility] [place] 2023-02-27 00:00 trimethoprim [facility] [place] 2023-02-27 00:00 trimethoprim [facility] [place] 2023-03-01 00:00 trimethoprim [facility] [place] 2023-02-09 00:00 cephalexin [facility] [place] 2023-02-09 00:00 cephalexin [facility] [place] 2023-02-09 00:00 cephalexin [facility] [place] 2023-02-09 00:00 cephalexin [facility] [place] 2023-01-21 00:00 levothyroxine [facility] [place] 2023-01-21 00:00 levothyroxine [facility] [place] 2023-01-24 00:00 levothyroxine [facility] [place] 2023-02-06 00:00 levothyroxine [facility] [place] 2023-02-07 00:00 levothyroxine [facility] [place] 2023-02-07 00:00 levothyroxine [facility] [place] 2023-02-08 00:00 levothyroxine [facility] [place] 2023-02-08 00:00 levothyroxine [facility] [place] 2023-02-09 00:00 levothyroxine [facility] [place] 2023-02-10 00:00 levothyroxine [facility] [place] 2023-02-10 00:00 levothyroxine [facility] [place] 2023-02-27 00:00 levothyroxine [facility] [place] 2023-02-27 00:00 levothyroxine [facility] [place] 2023-03-01 00:00 levothyroxine [facility] [place] 2023-02-09 00:00 nitrofurantoin monohyd/m-cryst [facility] [place] 2023-02-09 00:00 nitrofurantoin monohyd/m-cryst [facility] [place] 2023-02-09 00:00 nitrofurantoin monohyd/m-cryst [facility] [place] 2023-02-09 00:00 nitrofurantoin monohyd/m-cryst [facility] [place] 2023-02-09 00:00 cephalexin [facility] [place] 2023-02-09 00:00 cephalexin [facility] [place] 2023-02-09 00:00 cephalexin [facility] [place] 2023-02-09 00:00 cephalexin [facility] [place] 2023-01-21 00:00 latanoprost [facility] [place] 2023-01-21 00:00 latanoprost [facility] [place] 2023-01-24 00:00 latanoprost [facility] [place] 2023-02-06 00:00 latanoprost [facility] [place] 2023-02-07 00:00 latanoprost [facility] [place] 2023-02-07 00:00 latanoprost [facility] [place] 2023-02-08 00:00 latanoprost [facility] [place] 2023-02-08 00:00 latanoprost [facility] [place] 2023-02-09 00:00 latanoprost [facility] [place] 2023-02-10 00:00 latanoprost [facility] [place] 2023-02-10 00:00 latanoprost [facility] [place] 2023-02-27 00:00 latanoprost [facility] [place] 2023-02-27 00:00 latanoprost [facility] [place] 2023-03-01 00:00 latanoprost [facility] [place] 2023-01-21 00:00 escitalopram oxalate Walk-In [facility] [place] 2023-01-21 00:00 escitalopram oxalate Walk-In Cl [facility] [place] 2023-01-24 00:00 escitalopram oxalate Walk[facility]In [facility] [place] 2023-02-06 00:00 escitalopram oxalate Walk[facility]In [facility] [place] 2023-02-07 00:00 escitalopram oxalate Walk[facility] [place] 2023-02-07 00:00 escitalopram oxalate Walk[facility]In [facility] [place] 2023-02-08 00:00 escitalopram oxalate Walk[facility] [place] 2023-02-08 00:00 escitalopram oxalate Walk[facility] [place] 2023-02-09 00:00 escitalopram oxalate Walk[facility] [place] 2023-02-10 00:00 escitalopram oxalate Walk[facility] [place] 2023-02-10 00:00 escitalopram oxalate Walk[facility] [place] 2023-02-27 00:00 escitalopram oxalate Walk[facility] [place] 2023-02-27 00:00 escitalopram oxalate Walk[facility] [place] 2023-03-01 00:00 escitalopram oxalate Walk[facility] [place] 2023-02-06 00:00 fluconazole [facility] [place] 2023-02-06 00:00 fluconazole [facility] [place] 2023-02-06 00:00 fluconazole [facility] [place] 2023-02-06 00:00 fluconazole [facility] [place] 2023-02-06 00:00 fluconazole [facility] [place] 2023-02-06 00:00 fluconazole [facility] [place] 2023-01-21 00:00 latanoprost [facility] [place] 2023-01-21 00:00 latanoprost [facility] [place] 2023-01-24 00:00 latanoprost [facility] [place] 2023-02-06 00:00 latanoprost [facility] [place] 2023-02-07 00:00 latanoprost [facility] [place] 2023-02-07 00:00 latanoprost [facility] [place] 2023-02-08 00:00 latanoprost [facility] [place] 2023-02-08 00:00 latanoprost [facility] [place] 2023-02-09 00:00 latanoprost [facility] [place] 2023-02-10 00:00 latanoprost [facility] [place] 2023-02-10 00:00 latanoprost [facility] [place] 2023-02-27 00:00 latanoprost [facility] [place] 2023-02-27 00:00 latanoprost [facility] [place] 2023-03-01 00:00 latanoprost [facility] [place] 2023-01-21 00:00 dorzolamide-timolol [facility] [place] 2023-01-21 00:00 dorzolamide-timolol [facility] [place] 2023-01-24 00:00 dorzolamide-timolol [facility] [place] 2023-02-06 00:00 dorzolamide-timolol [facility] [place] 2023-02-07 00:00 dorzolamide-timolol [facility] [place] 2023-02-07 00:00 dorzolamide-timolol [facility] [place] 2023-02-08 00:00 dorzolamide-timolol [facility] [place] 2023-02-08 00:00 dorzolamide-timolol [facility] [place] 2023-02-09 00:00 dorzolamide-timolol [facility] [place] 2023-02-10 00:00 dorzolamide-timolol [facility] [place] 2023-02-10 00:00 dorzolamide-timolol [facility] [place] 2023-02-27 00:00 dorzolamide-timolol [facility] [place] 2023-02-27 00:00 dorzolamide-timolol [facility] [place] 2023-03-01 00:00 dorzolamide-timolol [facility] [place] 2023-01-21 00:00 trimethoprim [facility] [place] 2023-01-21 00:00 trimethoprim [facility] 2023-01-24 00:00 trimethoprim [facility] [place] 2023-02-06 00:00 trimethoprim Walk-In [facility] [place] 2023-02-07 00:00 trimethoprim [facility] [place] 2023-02-07 00:00 trimethoprim [facility] [place] 2023-02-08 00:00 trimethoprim [facility] [place] 2023-02-08 00:00 trimethoprim [facility] [place] 2023-02-09 00:00 trimethoprim [facility] [place] 2023-02-10 00:00 trimethoprim [facility] [place] 2023-02-10 00:00 trimethoprim [facility] [place] 2023-02-27 00:00 trimethoprim [facility] [place] 2023-02-27 00:00 trimethoprim [facility] [place] 2023-03-01 00:00 trimethoprim [facility] [place] 2023-02-27 00:00 cefdinir [facility] [place] 2023-01-21 00:00 conjugated estrogens [facility] [place] 2023-01-21 00:00 conjugated estrogens [facility] [place] 2023-01-24 00:00 conjugated estrogens [facility] [place] 2023-02-06 00:00 conjugated estrogens [facility] [place] 2023-02-07 00:00 conjugated estrogens [facility] [place] 2023-02-07 00:00 conjugated estrogens [facility] [place] 2023-02-08 00:00 conjugated estrogens [facility] [place] 2023-02-08 00:00 conjugated estrogens [facility] [place] 2023-02-09 00:00 conjugated estrogens [facility] [place] 2023-02-10 00:00 conjugated estrogens [facility] [place] 2023-02-10 00:00 conjugated estrogens [facility] [place] 2023-02-27 00:00 conjugated estrogens [facility] [place] 2023-02-27 00:00 conjugated estrogens [facility] [place] 2023-03-01 00:00 conjugated estrogens [facility] [place] 2023-01-21 00:00 dorzolamide-timolol Walk[facility]In [facility] [place] 2023-01-21 00:00 dorzolamide-timolol [facility] [place] 2023-01-24 00:00 dorzolamide-timolol [facility] [place] 2023-02-06 00:00 dorzolamide-timolol [facility] [place] 2023-02-07 00:00 dorzolamide-timolol [facility] [place] 2023-02-07 00:00 dorzolamide-timolol [facility] [place] 2023-02-08 00:00 dorzolamide-timolol [facility] [place] 2023-02-08 00:00 dorzolamide-timolol [facility] [place] 2023-02-09 00:00 dorzolamide-timolol [facility] [place] 2023-02-10 00:00 dorzolamide-timolol [facility] [place] 2023-02-10 00:00 dorzolamide-timolol [facility] [place] 2023-02-27 00:00 dorzolamide-timolol [facility] [place] 2023-02-27 00:00 dorzolamide-timolol [facility] [place] 2023-03-01 00:00 dorzolamide-timolol [facility] [place] 2023-01-21 00:00 escitalopram oxalate [facility] [place] 2023-01-21 00:00 escitalopram oxalate [facility] [place] 2023-01-24 00:00 escitalopram oxalate [facility] [place] 2023-02-06 00:00 escitalopram oxalate [facility] [place] 2023-02-07 00:00 escitalopram oxalate [facility] [place] 2023-02-07 00:00 escitalopram oxalate [facility] [place] 2023-02-08 00:00 escitalopram oxalate [facility] [place] 2023-02-08 00:00 escitalopram oxalate [facility] [place] 2023-02-09 00:00 escitalopram oxalate [facility] [place] 2023-02-10 00:00 escitalopram oxalate [facility] [place] 2023-02-10 00:00 escitalopram oxalate [facility] [place] 2023-02-27 00:00 escitalopram oxalate [facility] [place] 2023-02-27 00:00 escitalopram oxalate [facility] [place] 2023-03-01 00:00 escitalopram oxalate [facility] [place] 2023-01-21 00:00 latanoprost [facility] [place] 2023-01-21 00:00 latanoprost [facility] [place] 2023-01-24 00:00 latanoprost [facility] [place] 2023-02-06 00:00 latanoprost [facility] [place] 2023-02-07 00:00 latanoprost [facility] [place] 2023-02-07 00:00 latanoprost [facility] [place] 2023-02-08 00:00 latanoprost [facility] [place] 2023-02-08 00:00 latanoprost [facility] [place] 2023-02-09 00:00 latanoprost [facility] [place] 2023-02-10 00:00 latanoprost [facility] [place] 2023-02-10 00:00 latanoprost [facility] [place] 2023-02-27 00:00 latanoprost [facility] [place] 2023-02-27 00:00 latanoprost [facility] [place] 2023-03-01 00:00 latanoprost [facility] [place] 2023-01-21 00:00 escitalopram oxalate [facility] [place] 2023-01-21 00:00 escitalopram oxalate [facility] [place] 2023-01-24 00:00 escitalopram oxalate [facility] [place] 2023-02-06 00:00 escitalopram oxalate [facility] [place] 2023-02-07 00:00 escitalopram oxalate [facility] [place] 2023-02-07 00:00 escitalopram oxalate [facility] [place] 2023-02-08 00:00 escitalopram oxalate [facility] [place] 2023-02-08 00:00 escitalopram oxalate [facility] [place] 2023-02-09 00:00 escitalopram oxalate [facility] [place] 2023-02-10 00:00 escitalopram oxalate [facility] [place] 2023-02-10 00:00 escitalopram oxalate [facility] [place] 2023-02-27 00:00 escitalopram oxalate [facility] [place] 2023-02-27 00:00 escitalopram oxalate [facility] [place] 2023-03-01 00:00 escitalopram oxalate [facility] [place] 2023-02-27 00:00 cefdinir [facility] [place] 2023-01-21 00:00 conjugated estrogens [facility] [place] 2023-01-21 00:00 conjugated estrogens [facility] [place] 2023-01-24 00:00 conjugated estrogens [facility] [place] 2023-02-06 00:00 conjugated estrogens [facility] [place] 2023-02-07 00:00 conjugated estrogens [facility] [place] 2023-02-07 00:00 conjugated estrogens [facility] [place] 2023-02-08 00:00 conjugated estrogens [facility] [place] 2023-02-08 00:00 conjugated estrogens [facility] [place] 2023-02-09 00:00 conjugated estrogens [facility] [place] 2023-02-10 00:00 conjugated estrogens [facility] [place] 2023-02-10 00:00 conjugated estrogens [facility] [place] 2023-02-27 00:00 conjugated estrogens [facility] [place] 2023-02-27 00:00 conjugated estrogens [facility] [place] 2023-03-01 00:00 conjugated estrogens [facility] [place] 2023-01-21 00:00 escitalopram oxalate [facility] [place] 2023-01-21 00:00 escitalopram oxalate [facility] [place] 2023-01-24 00:00 escitalopram oxalate [facility] [place] 2023-02-06 00:00 escitalopram oxalate [facility] [place] 2023-02-07 00:00 escitalopram oxalate [facility] [place] 2023-02-07 00:00 escitalopram oxalate [facility] [place] 2023-02-08 00:00 escitalopram oxalate [facility] [place] 2023-02-08 00:00 escitalopram oxalate [facility] [place] 2023-02-09 00:00 escitalopram oxalate [facility] [place] 2023-02-10 00:00 escitalopram oxalate [facility] [place] 2023-02-10 00:00 escitalopram oxalate [facility] [place] 2023-02-27 00:00 escitalopram oxalate [facility] [place] 2023-02-27 00:00 escitalopram oxalate [facility] [place] 2023-03-01 00:00 escitalopram oxalate [facility] [place] 2023-01-21 00:00 dorzolamide-timolol [facility] [place] 2023-01-21 00:00 dorzolamide-timolol [facility] [place] 2023-01-24 00:00 dorzolamide-timolol [facility] [place] 2023-02-06 00:00 dorzolamide-timolol [facility] [place] 2023-02-07 00:00 dorzolamide-timolol [facility] [place] 2023-02-07 00:00 dorzolamide-timolol [facility] [place] 2023-02-08 00:00 dorzolamide-timolol [facility] [place] 2023-02-08 00:00 dorzolamide-timolol [facility] [place] 2023-02-09 00:00 dorzolamide-timolol [facility] [place] 2023-02-10 00:00 dorzolamide-timolol [facility] [place] 2023-02-10 00:00 dorzolamide-timolol [facility] [place] 2023-02-27 00:00 dorzolamide-timolol [facility] [place] 2023-02-27 00:00 dorzolamide-timolol [facility] [place] 2023-03-01 00:00 dorzolamide-timolol [facility] [place] 2023-01-21 00:00 latanoprost [facility] [place] 2023-01-21 00:00 latanoprost [facility] [place] 2023-01-24 00:00 latanoprost [facility] [place] 2023-02-06 00:00 latanoprost [facility] [place] 2023-02-07 00:00 latanoprost [facility] [place] 2023-02-07 00:00 latanoprost [facility] [place] 2023-02-08 00:00 latanoprost [facility] [place] 2023-02-08 00:00 latanoprost [facility] [place] 2023-02-09 00:00 latanoprost [facility] [place] 2023-02-10 00:00 latanoprost [facility] [place] 2023-02-10 00:00 latanoprost [facility] [place] 2023-02-27 00:00 latanoprost [facility] [place] 2023-02-27 00:00 latanoprost [facility] [place] 2023-03-01 00:00 latanoprost [facility] [place] 2023-01-21 00:00 levothyroxine [facility] [place] 2023-01-21 00:00 levothyroxine [facility] [place] 2023-01-24 00:00 levothyroxine [facility] [place] 2023-02-06 00:00 levothyroxine [facility] [place] 2023-02-07 00:00 levothyroxine [facility] [place] 2023-02-07 00:00 levothyroxine [facility] [place] 2023-02-08 00:00 levothyroxine [facility] [place] 2023-02-08 00:00 levothyroxine [facility] [place] 2023-02-09 00:00 levothyroxine [facility] [place] 2023-02-10 00:00 levothyroxine [facility] [place] 2023-02-10 00:00 levothyroxine [facility] [place] 2023-02-27 00:00 levothyroxine [facility] [place] 2023-02-27 00:00 levothyroxine [facility] [place] 2023-03-01 00:00 levothyroxine [facility] [place] Problems date description facility 2023-01-21 00:00 Cellulitis of heel Walk[facility]In [facility] [place] 2023-01-21 00:00 Cellulitis of heel [facility]In [facility] [place] 2023-01-21 00:00 Cellulitis of heel [facility] [place] 2023-01-21 00:00 Cellulitis of heel [facility] [place] 2023-01-21 00:00 Cellulitis of heel [facility] [place] 2023-01-21 00:00 Cellulitis of heel [facility] [place] 2023-01-21 00:00 Cellulitis of heel [facility] [place] 2023-01-21 00:00 Cellulitis of heel [facility] [place] 2023-01-21 00:00 Cellulitis and absce ss of foot, except toes [facility] [place] 2023-01-21 00:00 Cellulitis and absce ss of foot, except toes [facility] [place] 2023-01-21 00:00 Cellulitis and absce ss of foot, except toes [facility] [place] 2023-01-21 00:00 Cellulitis and absce ss of foot, except toes [facility] [place] 2023-01-21 00:00 Cellulitis and absce ss of foot, except toes [facility] [place] 2023-01-21 00:00 Cellulitis and absce ss of foot, except toes [facility] [place] 2023-01-21 00:00 Cellulitis and absce ss of foot, except toes [facility] [place] 2023-01-21 00:00 Cellulitis and absce ss of foot, except toes [facility] [place] 2023-01-21 00:00 Cellulitis of left lower limb W alk-In [facility] [place] 2023-01-21 00:00 Cellulitis of left lower limb W alk-In [facility] [place] 2023-01-21 00:00 Cellulitis of left lower limb W [facility] [place] 2023-01-21 00:00 Cellulitis of left lower limb W [facility] [place] 2023-01-21 00:00 Cellulitis of left lower limb W [facility] [place] 2023-01-21 00:00 Cellulitis of left lower limb [facility] [place] 2023-01-21 00:00 Cellulitis of left lower limb W [facility] [place] 2023-01-21 00:00 Cellulitis of left lower limb W [facility] [place] 2023-02-06 00:00 Leukocytes in urine [facility] [place] 2023-02-06 00:00 Leukocytes in urine Walk[facility]In [facility] [place] 2023-02-06 00:00 Leukocytes in urine Walk[facility]In [facility] [place] 2023-02-06 00:00 Leukocytes in urine [facility] [place] 2023-02-06 00:00 Leukocytes in urine [facility] [place] 2023-02-06 00:00 Leukocytes in urine [facility] [place] 2023-02-06 00:00 Other nonspecific fi ndings on examination of urine [facility] [place] 2023-02-06 00:00 Other nonspecific fi ndings on examination of urine [facility] [place] 2023-02-06 00:00 Other nonspecific fi ndings on examination of urine [facility] [place] 2023-02-06 00:00 Other nonspecific fi ndings on examination of urine [facility] [place] 2023-02-06 00:00 Other nonspecific fi ndings on examination of urine [facility] [place] 2023-02-06 00:00 Other nonspecific fi ndings on examination of urine [facility] [place] 2023-02-06 00:00 Other abnormal findi ngs on microbiological examination of urine [facility] [place] 2023-02-06 00:00 Other abnormal findi ngs on microbiological examination of urine [facility] [place] 2023-02-06 00:00 Other abnormal findi ngs on microbiological examination of urine [facility] [place] 2023-02-06 00:00 Other abnormal findi ngs on microbiological examination of urine [facility] [place] 2023-02-06 00:00 Other abnormal findi ngs on microbiological examination of urine [facility] [place] 2023-02-06 00:00 Other abnormal findi ngs on microbiological examination of urine [facility] [place] Procedures date description facility 2023-01-21 00:00 Visit Code Hold [facility] [place] 2023-01-21 00:00 Visit Code Hold [facility] [place] 2023-01-21 00:00 Visit Code Hold [facility] [place] 2023-01-21 00:00 Visit Code Hold [facility] [place] 2023-01-21 00:00 Visit Code Hold [facility] [place] 2023-01-21 00:00 Visit Code Hold [facility] [place] 2023-01-21 00:00 Visit Code Hold [facility] [place] 2023-01-21 00:00 Visit Code Hold [facility] [place] 2023-02-06 00:00 Visit Code Hold [facility] [place] 2023-02-06 00:00 Visit Code Hold [facility] [place] 2023-02-06 00:00 Visit Code Hold [facility] [place] 2023-02-06 00:00 Visit Code Hold [facility] [place] 2023-02-06 00:00 Visit Code Hold [facility] [place] 2023-02-06 00:00 Visit Code Hold [facility] [place] 2023-02-27 00:00 Visit Code Hold [facility] [place] 2023-02-27 00:00 POC URINALYSIS DIP [facility] [place] 2023-02-06 00:00 Urine C&S [facility] [place] 2023-02-06 00:00 Urine C&S [facility] [place] 2023-02-06 00:00 Urine C&S [facility] [place] 2023-02-06 00:00 Urine C&S [facility] [place] 2023-02-06 00:00 Urine C&S [facility] [place] 2023-02-06 00:00 Urine C&S [facility] [place] Results/Labs test date facility value unit notes Social History date description facility 2023-01-21 00:00 Never smoker [facility] [place] 2023-01-21 00:00 Never smoker [facility] [place] 2023-01-21 00:00 Never smoker [facility] [place] 2023-01-21 00:00 Never smoker [facility] [place] 2023-01-21 00:00 Never smoker [facility] [place] 2023-01-21 00:00 Never smoker [facility] [place] 2023-01-21 00:00 Never smoker [facility] [place] 2023-01-21 00:00 Never smoker [facility] [place] 2023-02-06 00:00 Never smoker [facility] [place] 2023-02-06 00:00 Never smoker [facility] [place] 2023-02-06 00:00 Never smoker [facility] [place] 2023-02-06 00:00 Never smoker [facility] [place] 2023-02-06 00:00 Never smoker [facility] [place] 2023-02-06 00:00 Never smoker [facility] [place] 2023-02-27 00:00 Never smoker [facility] [place] Vital Signs date measurement value units 2023-01-21 00:00 BMI 29.63 kg/m2 2023-01-21 00:00 BP_diastolic 67 mmHg 2023-01-21 00:00 BP_systolic 110 mmHg 2023-01-21 00:00 heart_rate 60 /min 2023-01-21 00:00 height_metric 160.66 cm 2023-01-21 00:00 height_standard 63.25 in 2023-01-21 00:00 respiration_rate 17 /min 2023-01-21 00:00 temperature_metric 36.22 C 2023-01-21 00:00 temperature_standard 97.2 F 2023-01-21 00:00 weight_metric 76.2 kg 2023-01-21 00:00 weight_standard 168 lb 2023-02-06 00:00 BMI 29.63 kg/m2 2023-02-06 00:00 BP_diastolic 69 mmHg 2023-02-06 00:00 BP_systolic 121 mmHg 2023-02-06 00:00 heart_rate 62 /min 2023-02-06 00:00 height_metric 160.66 cm 2023-02-06 00:00 height_standard 63.25 in 2023-02-06 00:00 respiration_rate 16 /min 2023-02-06 00:00 temperature_metric 36.11 C 2023-02-06 00:00 temperature_standard 97 F 2023-02-06 00:00 weight_metric 76.2 kg 2023-02-06 00:00 weight_standard 168 lb 2023-02-27 00:00 BMI 29.63 kg/m2 2023-02-27 00:00 BP_diastolic 79 mmHg 2023-02-27 00:00 BP_systolic 134 mmHg 2023-02-27 00:00 heart_rate 62 /min 2023-02-27 00:00 height_metric 160.66 cm 2023-02-27 00:00 height_standard 63.25 in 2023-02-27 00:00 respiration_rate 17 /min 2023-02-27 00:00 temperature_metric 36.22 C 2023-02-27 00:00 temperature_standard 97.2 F 2023-02-27 00:00 weight_metric 76.2 kg 2023-02-27 00:00 weight_standard 168 lb
--- NOTE | 2023-04-13 18:10 | CT Report ---
PROCEDURE: HEAD WO INDICATIONS: GLFl facial trauma TECHNIQUE: Noncontrast 4.5 mm thick angled axial sections acquired from the foramen magnum to the vertex. For r adiation dose reduction, the following was used: automated exposure control, adjustment of mA and/or kV according to patient size. COMPARISON: None. FINDINGS: Image quality: Excellent. CSF spaces: Basal cisterns are patent. No extra-axial fluid collections. Ventricles are normal in size and shape. Brain: No midline shift. No intracranial masses or hemorrhage. Hillman-white matter interface is norm al. Skull and face: Displaced nasal bone fracture. Subcutaneous hematoma overlying the left frontal bone. Sinuses: Visualized sinuses and mastoids are clear. IMPRESSION: No acute intracranial pathology Displaced nasal bone fracture. Reviewed by: Neo Arauz on 04/13/2023 6:08 PM PDT Approved by: Neo Arauz on 04/13/2023 6:08 PM PDT Station ID: [id number]
--- NOTE | 2023-04-13 18:11 | CT Report ---
PROCEDURE: MAXILLOFACIAL WO INDICATIONS: ? orbital fx?? TECHNIQUE: Noncontrast 1.5 mm thick axial images acquired from the mandible through the frontal sinuses, with co gus and sagittal reformatting. For radiation dose reduction, the following was used: automated ex posure control, adjustment of mA and/or kV according to patient size. COMPARISON: None. FINDINGS: Image quality: Excellent. Bones and teeth: Displaced nasal bone fractures, with associated subcutaneous edema. Sinuses: Paranasal sinuses are aerated, without fluid levels. Mild cortical thickening of the right maxillary sinus. Soft tissues: Subcutaneous edema overlying the nasal bone and left frontal bone. Vascular: Visualized vascular structures appear normal in the absence of contrast. Bony vascular fo ramina and canals are intact. IMPRESSION: Displaced nasal bone fractures. Reviewed by: Neo Arauz on 04/13/2023 6:10 PM PDT Approved by: Neo Arauz on 04/13/2023 6:10 PM PDT Station ID: [id number]
--- NOTE | 2023-04-13 18:13 | CT Report ---
PROCEDURE: CERVICAL SPINE WO INDICATIONS: Ground-level fall and facial fracture. TECHNIQUE: Noncontrast 3 mm thick sections acquired from the skull base to the T4 level. Sagittal and coronal r eformats were then constructed. For radiation dose reduction, the following was used: automated exp osure control, adjustment of mA and/or kV according to patient size. COMPARISON: None. FINDINGS: Image quality: Excellent. Bones: No fractures or dislocations. Visualized superior ribs are intact. Mild to moderate, multil evel disc height loss. Soft tissues: Prevertebral soft tissues are normal in thickness. No paravertebral hematomas. No ap ical pneumothoraces. Smooth interstitial thickening of the lung apices. IMPRESSION: No acute, displaced fracture or traumatic subluxation. Smooth interstitial thickening of the lung apices, likely mild pulmonary edema. Reviewed by: Neo Arauz on 04/13/2023 6:12 PM PDT Approved by: Neo Arauz on 04/13/2023 6:12 PM PDT Station ID: [id number]
--- NOTE | 2023-04-13 18:14 | XRAY Report ---
PROCEDURE: Chest 1 View X-Ray INDICATIONS: chest pain TECHNIQUE: One view of the chest was acquired. COMPARISON: None. FINDINGS: Surgical changes and devices: Chest wall ICD generator and intravenous leads. Lungs and pleura: No pleural effusions or pneumothorax. Lungs are clear. Mediastinum: Mediastinal contours appear normal. Heart size is normal. Bones and chest wall: No suspicious bony lesions. Overlying soft tissues appear unremarkable. IMPRESSION: No acute cardiopulmonary process. Reviewed by: Neo Arauz on 04/13/2023 6:13 PM PDT Approved by: Neo Arauz on 04/13/2023 6:13 PM PDT Station ID: [id number]
[2023-04-13 18:58] VITALS: BP 131/66; O2SAT 96
== END 2023-04-13 18:56 | disposition home or self-care (01) ==
LOC: ED 16:49
DX: S02.2XXA Fracture of nasal bones, initial encounter for closed fracture (principal); S00.31XA Abrasion of nose, initial encounter; S81.812A Laceration without foreign body, left lower leg, initial encounter; S81.811A Laceration without foreign body, right lower leg, initial encounter; S00.12XA Contusion of left eyelid and periocular area, initial encounter; S00.11XA Contusion of right eyelid and periocular area, initial encounter; S80.212A Abrasion, left knee, initial encounter; S80.211A Abrasion, right knee, initial encounter; W01.0XXA Fall on same level from slipping, tripping and stumbling without subsequent striking against object, initial encounter; Y93.01 Activity, walking, marching and hiking; Y92.038 Other place in apartment as the place of occurrence of the external cause
CPT/HCPCS: 99284

== ENCOUNTER 2023-06-14 10:44 | Outpatient (CLI) | payer MEDICARE, OTHER ==
--- NOTE | 2023-06-15 13:40 | Mammography Report ---
BILATERAL DIGITAL SCREENING MAMMOGRAM 3D/2D: 06/14/2023 CLINICAL: Routine screening. Family history of breast cancer. Comparison is made to exams dated: 02/25/2009 mammogram and 12/20/2007 mammogram - [facility]. Both breasts are heterogeneously dense, which may obscure small masses (category c / 51-75% glandular tissue). There is a 0.8 cm oval equal density focal asymmetry in the right breast at 12 o'clock middle depth. This is more prominent and increased in size. No other significant masses, calcifications, or other findings are seen in either breast. IMPRESSION: INCOMPLETE: NEEDS ADDITIONAL IMAGING EVALUATION The 0.8 cm oval equal density focal asymmetry in the right breast resembles a cyst and is indetermina te. Additional views with possible ultrasound are recommended. Based on the Tyrer Cuzick model (a risk assessment model) the patients lifetime risk is 0.9% and her 10 year risk is 0.0%. According to the ACR, ACS, and NCCN guidelines, an annual breast MRI exam karely g with mammogram is recommended if the patients lifetime risk is 20% or greater. This exam was interpreted at Station ID: [id number]. NOTE: For mammograms, a report in lay terms will be sent to the patient. Approximately 15% of breast malignancies will not be visualized mammographically. In the management of a palpable breast mass, a negative mammogram must not discourage biopsy of a clinically suspicious lesion. Electronically Signed By: Emmanuel Michael M.D. aty/:06/14/2023 18:04:59 ACR BI-RADS Category 0: Incomplete 3340F PARENCHYMAL PATTERN: (D) - The breast(s) demonstrate(s) heterogeneously dense fibroglandular parolegarioy aiyana. BI-RADS CATEGORY: (0) - 0 Mammo and [place] [id number] Immediate follow-up LATERALITY: (R)
== END 2023-06-14 10:45 | disposition home or self-care (01) ==
LOC: DI.S 10:44
DX: Z12.31 Encounter for screening mammogram for malignant neoplasm of breast (principal); Z80.3 Family history of malignant neoplasm of breast; R92.333 Mammographic heterogeneous density, bilateral breasts; R92.8 Other abnormal and inconclusive findings on diagnostic imaging of breast

== ENCOUNTER 2023-07-06 10:00 | Outpatient (CLI) | payer MEDICARE, OTHER ==
--- NOTE | 2023-07-07 15:51 | Ultrasound Report ---
LIMITED ULTRASOUND OF RIGHT BREAST: 07/06/2023 CLINICAL: Patient returns today to evaluate a focal asymmetry in the right breast. Comparison is made to exams dated: 07/06/2023 mammogram, 06/14/2023 mammogram, 02/25/2009 mammogram, an d 12/20/2007 mammogram - [facility]. Color flow and real-time ultrasound of the right breast 11-12 o'clock region were performed. Hillman sc fady images of the real-time examination were reviewed. There is a 7 mm oval cyst in the right breast at 11 o'clock middle depth. This oval cyst is anechoic with an abrupt boundary and posterior acoustic enhancement. This correlates with mammography findin gs. Color flow imaging demonstrates that there is no vascularity present. IMPRESSION: BENIGN There is no sonographic evidence of malignancy. The 7 mm oval cyst in the right breast corresponds to the mammogram finding, is consistent with a sim ple cyst and is benign. Return to annual mammogram screening schedule is recommended. Findings and recommendations were con veyed to the patient at time of exam. This exam was interpreted at Station ID: [id number]. Electronically Signed By: Lu kiser/:07/06/2023 11:20:09 letter sent: No_Letter Ultrasound BI-RADS: 2 Benign BI-RADS CATEGORY: (2) - 2 Mammogram [id number] return to screening LATERALITY: (B)
--- NOTE | 2023-07-07 15:51 | Mammography Report ---
UNILATERAL RIGHT DIGITAL DIAGNOSTIC MAMMOGRAM 3D/2D: 07/06/2023 CLINICAL: Patient returns today to evaluate a focal asymmetry in the right breast. Comparison is made to exams dated: 06/14/2023 mammogram and 02/25/2009 mammogram - [facility]. The right breast is heterogeneously dense, which may obscure small masses (category c / 51-75% glandu lar tissue). There is a 0.9 cm oval equal density focal asymmetry in the right breast at 12 o'clock middle depth. This is seen in additional views. This is more prominent and increased in size. No other significant masses or calcifications are seen in the breast. IMPRESSION: INCOMPLETE: NEEDS ADDITIONAL IMAGING EVALUATION The 0.9 cm oval equal density focal asymmetry in the right breast resembles a cyst but remains indete rminate. An ultrasound is recommended. This was performed immediately following this exam. Based on the Tyrer Cuzick model (a risk assessment model) the patients lifetime risk is 0.9% and her 10 year risk is 0.0%. According to the ACR, ACS, and NCCN guidelines, an annual breast MRI exam karely g with mammogram is recommended if the patients lifetime risk is 20% or greater. This exam was interpreted at Station ID: [id number]. NOTE: For mammograms, a report in lay terms will be sent to the patient. Approximately 15% of breast malignancies will not be visualized mammographically. In the management of a palpable breast mass, a negative mammogram must not discourage biopsy of a clinically suspicious lesion. Electronically Signed By: Lu kiser/:07/06/2023 10:44:45 ACR BI-RADS Category 0: Incomplete 3340F PARENCHYMAL PATTERN: (D) - The breast(s) demonstrate(s) heterogeneously dense fibroglandular parenchy ma. BI-RADS CATEGORY: (0) - 0 Ultrasound [id number] Immediate follow-up LATERALITY: (B)
== END 2023-07-06 10:01 | disposition home or self-care (01) ==
LOC: DI 10:00
PROVIDERS: ATTEND Physician Assistant
DX: N60.01 Solitary cyst of right breast (principal); R92.331 Mammographic heterogeneous density, right breast

== ENCOUNTER 2023-08-31 08:00 | Outpatient (CLI) | payer MEDICARE, OTHER | END 2023-08-31 23:59 | disposition home or self-care (01) | LOC: LAB.N 08:00 | PROVIDERS: ATTEND Registered Nurse | DX: N89.8 Other specified noninflammatory disorders of vagina (principal); R82.79 Other abnormal findings on microbiological examination of urine; R30.0 Dysuria | CPT/HCPCS: 81514; 87086 ==

== ENCOUNTER 2023-08-31 08:00 | Outpatient (CLI) | payer MEDICARE, OTHER ==
[2023-08-31 18:33] LABS: BACTERIAL VAGINOSIS DNA NEGATIVE (NEGATIVE); CANDIDA GLABRATA DNA NEGATIVE (NEGATIVE); CANDIDA GROUP DNA NEGATIVE (NEGATIVE); CANDIDA KRUSEI DNA NEGATIVE (NEGATIVE); TRICHOMONAS VAGINALIS DNA NEGATIVE (NEGATIVE)
== END 2023-08-31 23:59 | disposition home or self-care (01) ==
LOC: LAB.S 08:00
PROVIDERS: ATTEND Registered Nurse
DX: N89.8 Other specified noninflammatory disorders of vagina (principal); R82.79 Other abnormal findings on microbiological examination of urine; R30.0 Dysuria
CPT/HCPCS: 81514

== ENCOUNTER 2023-10-31 08:00 | Outpatient (CLI) | payer MEDICARE, OTHER ==
[2023-10-31 21:01] LABS: BILIRUBIN,URINE NEGATIVE (NEGATIVE); GLUCOSE, URINE (UA) NEGATIVE (NEGATIVE); KETONES,URINE (UA) NEGATIVE (NEGATIVE); LEUKOCYTE ESTERASE, URINE MODERATE (NEGATIVE); NITRITE,URINE NEGATIVE (NEGATIVE); OCCULT BLOOD,URINE NEGATIVE (NEGATIVE); PROTEIN,URINE NEGATIVE (NEGATIVE); UROBILINOGEN,URINE 0.2 (NORMAL) E.U./dL (NORMAL)
[2023-10-31 21:20] LABS: CLARITY,URINE HAZY (CLEAR)
[2023-10-31 21:32] LABS: BACTERIA,URINE Moderate /HPF (None Seen); RBC,URINE 0-5 /HPF (0-5); SQUAMOUS EPITHELIAL CELL,UR FEW Squamous (<= Few); WBC,URINE >25 /HPF (0-5)
== END 2023-10-31 23:59 | disposition home or self-care (01) ==
LOC: LAB.S 08:00
PROVIDERS: ATTEND Emergency Medicine
DX: R30.0 Dysuria (principal)
CPT/HCPCS: 81001; 87086; 87181